=== PATIENT | female | born 1955 | race Caucasian/White ===

== ENCOUNTER → 2017-12-09 | Outpatient (CLI) | payer OTHER ==
[~2017-12-09] MED LIST: ALPRAZOLAM 0.0.25 MG PO; AMBIEN 5 MG TABL5 MG PO; AMLODIPINE-OLM1 EACH PO; ASPIR 8181 MG PO; AUGMENTIN 875875 MG PO; CALCIUM 500 +1 EAC5 PO; CENTRUM SILVER1 EAC4 PO; COLACE100 MG PO; EFFEXOR75 MG PO; ESTRACE2 MG PO; ESTRADIOL 1 MG T1 M1 PO; HYDROCODONE-AP1 EAC6 PO; IRBESARTAN75 MG PO; LATISSE5 ML TP; NORVASC2.5 MG PO; PRENATAL PO; SENOKOT-S1 TA1 PO; SUPER B COMPLEX PO; SYNTHROID25 MC1 PO; VENLAFAXIN75 MG/1 T2 PO; VENLAFAXINE HC150 M1 PO
== END ==
LOC: NUC 12:59
DX: N91.2 Amenorrhea, unspecified (principal); Z78.0 Asymptomatic menopausal state; Z29.9 Encounter for prophylactic measures, unspecified

== ENCOUNTER → 2017-12-15 | Outpatient (CLI) | payer OTHER | LOC: RAD 10:05 | DX: Z12.31 Encounter for screening mammogram for malignant neoplasm of breast (principal) ==

== ENCOUNTER → 2017-12-19 | Outpatient (CLI) | payer OTHER ==
[~2017-12-19] VITALS: Ht 162.6 cm; Wt 68.0 kg
--- NOTE | ~2017-12-19 | P ---
[facility] [place] [address] PROCEDURE REPORT Name: CHARLIE SAUNDERS Room #: REG [facility]#: [id number] Admission: 12/19/17 Attend Phys: Oh Hdez MD Discharge: Date of : 57 Report #: [id number] THIS REPORT FOR: //name// CC: Oh Berman DATE OF SERVICE: 12/19/2017 BRIEF HISTORY: The patient is a 62-year-old woman for average risk screening colonoscopy. PREOPERATIVE DIAGNOSIS: Average risk screening colonoscopy. POSTOPERATIVE DIAGNOSES: 1. Diminutive polyp. 2. Moderate sigmoid diverticulosis coli. MEDICATIONS: Deep sedation with propofol per anesthesia. SPECIMEN: Polyp at 60 cm. ESTIMATED BLOOD LOSS: 3 mL PROCEDURE: Colonoscopy to cecum and terminal ileum with biopsy. FINDINGS: Prior to propofol sedation, procedure of colonoscopy was discussed with the patient as well as potential risks and its complications. She indicates she understands and desires to proceed. The patient was placed in a left lateral decubitus position, digital examination was completed, which revealed no abnormalities. Subsequently, the Olympus video colonoscope was introduced into the rectum and advanced under direct vision to the cecum. Done with minimal difficulty. The cecum was identified by the ileocecal valve and the appendiceal orifice. I was able to visualize the distal segment of terminal ileum, which was unremarkable. At that point, scope was slowly withdrawn and careful circumferential views obtained including retroflexing the scope in the ascending colon. Upon slow withdrawal of the scope, the prep was noted to be excellent. The mucosa was within normal limits, normal vascular pattern and normal light reflex. No mucosal abnormalities were identified until the scope was withdrawn to about 60 cm at which point a diminutive polyp was seen and removed by biopsy. The scope was further withdrawn, and no additional neoplastic lesions were seen; however, in the sigmoid colon, there was moderately severe diverticular disease without endoscopic evidence of diverticulitis. Upon retroflexion, the scope was withdrawn in the rectum. No abnormalities were seen. Upon retroflexion in the rectum, no abnormalities were seen. Scope was withdrawn. The patient tolerated the procedure well. [facility] [address] [place] [address] PROCEDURE REPORT Name: CHARLIE SAUNDERS Guillermo [id number] Admission: 12/19/17 Attend Phys: Oh Hdez MD Discharge: Date of : 57 Report #: [id number] CONDITION OF THE PATIENT UPON DISCHARGE: Following the procedure, the patient was drowsy, arousable, conversant and will be discharged home when fully ambulatory. INSTRUCTIONS TO THE PATIENT AND FAMILY AT THE TIME OF DISCHARGE: We will follow up on the path of the polyp. If this is adenomatous, return in 5 years. If it is not adenomatous, then 10 years would be indicated. Last colonoscopy was 11 years ago. Withdrawal time from the cecum was 11 minutes 48 seconds. <ELECTRONICALLY SIGNED> By: Oh Hdez MD 12/20/17 1158 [id number] Oh Hdez MD /nt
--- NOTE | ~2017-12-19 | PATH ---
[facility] [address] [place] [address] PATHOLOGY RPT PROCEDURE Name: CHARLIE SAUNDERS Room #: REG ROBY Regina.#: [id number] Admission: 12/19/17 Date of : 57 Discharge: Report #: [id number] Path Case #: [id number] [facility] Accession Number: [id number] . 01 Material submitted: . PART A: BX OF SMALL BOWEL R/O CELIAC DX PART B: BX OF GASTRITIS PART C: BX OF POLYP AT 60CM . 01 Clinical history: . Preop diagnosis: Reflux, dysphagia, screening Postop diagnosis: Diverticulosis, colon polyp, esophagitis, gastritis, dysphagia, hiatus hernia A. R/O celiac . 02 Diagnosis: A. Small bowel mucosa, R/O celiac disease, endoscopic biopsy: - Fundic metaplasia with moderate active inflammation and mild villous blunting, compatible with active peptic duodenitis. - No increase in intraepithelial lymphocytes. . B. Gastric mucosa, gastritis, endoscopic biopsy: - Mild chronic active gastritis. - Negative for intestinal metaplasia or atrophy. - Negative for Helicobacter pylori (properly controlled immunohistochemical stain performed). . C. Polyp, at 60 cm, endoscopic biopsy: - Tubular adenoma. - Negative for high-grade dysplasia. ([facility]:[place]; 12/21/2017) QMS/12/21/2017 . 02 Electronically signed: . Bety Alvarado MD, Pathologist NPI- [id number] . 01 Gross description: . A. Received in formalin labeled "Charlie Saunders BX small bowel R/O celiac," are six segments of medrano soft tissue measuring 0.8 x 0.5 x 0.3 cm in aggregate dimensions and ranging from 0.2 to 0.5 cm in maximum dimension. The specimen is submitted entirely in cassette A1. . B. Received in formalin labeled "Charlie Saunders BX of gastritis," are six segments of medrano soft tissue measuring 0.8 x 0.5 x 0.2 cm in aggregate dimensions and ranging from 0.2 to 0.5 cm in maximum dimension. The specimen is submitted entirely in cassette B1. [address] [address] PATHOLOGY RPT PROCEDURE Name: CHARLIE SAUNDERS Room #: REG CLI Divya#: [id number] Admission: 12/19/17 Date of : 57 Discharge: Report #: [id number] Path Case #: [id number] . C. Received in formalin labeled "Charlie Saunders, BX of polyp at 60," and additionally labeled on the requisition as, "BX of polyp at 60 cm," are three segments of medrano soft tissue measuring 0.6 x 0.4 x 0.2 cm in aggregate dimensions and ranging from 0.3 to 0.4 cm in maximum dimension. The specimen is submitted entirely in cassette C1. ([facility]; 12/20/2017) XDC/XDC . 02 Pathologist provided ICD-10: K29.80, K29.50, D12.6 . 02 CPT . 152071, 817411, 109719, E91945 Specimen Comment: A courtesy copy of this report has been sent to Specimen Comment: [phone], . Specimen Comment: Report sent to / DR SHETH Performed at: [address], [place] [id number] MD Chevy Alaniz MD Phone: [phone] Performed at: [address] [id number] MD Bety Alvarado MD Phone: [phone]
--- NOTE | ~2017-12-19 | P ---
[facility] [place] [address] PROCEDURE REPORT Name: CHARLIE SAUNDERS Room #: REG [facility]#: [id number] Admission: 12/19/17 Attend Phys: Oh Hdez MD Discharge: Date of : 57 Report #: [id number] THIS REPORT FOR: //name// CC: Oh Berman DATE OF SERVICE: 12/19/2017 BRIEF HISTORY: The patient is a 62-year-old woman with worsening reflux symptoms including nocturnal regurgitation. She also has intermittent solid food dysphagia. In addition, she has abdominal bloating and gas symptoms and has 3-4 soft stools daily. PREOPERATIVE DIAGNOSIS: Poorly controlled reflux and solid food dysphagia and gas with loose stools. POSTOPERATIVE DIAGNOSES: 1. Mild erythematous antral gastritis. 2. Small intermittently seen sliding hiatus hernia, 1-2 cm. 3. Mild, grade A esophagitis with few erosions. MEDICATIONS: Deep sedation with propofol per anesthesia. SPECIMEN: Small bowel biopsies to rule out celiac disease. ESTIMATED BLOOD LOSS: 3 mL PROCEDURE: Esophagogastroduodenoscopy and Velasco dilation. FINDINGS: Prior to propofol sedation, procedure of upper endoscopy was discussed with the patient as well as potential risks and its complications. She indicates she understands and desires to proceed. The patient was placed in left lateral decubitus position, the Olympus video endoscope was inserted in the cervical esophagus under direct vision without difficulty. Examination of this organ through its entirety revealed normal esophageal mucosa down the squamocolumnar junction. At the squamocolumnar junction, she was noted to have 2 small erosions. There is no evidence of Moore mucosa, strictures or masses. Intermittently, a 1-2 cm sliding hiatus hernia was seen. Scope was advanced into the stomach, was examined on end view as well as retroflexed views. Upon retroflexion, a small 1-2 cm sliding type hiatus hernia was seen intermittently. No mass lesions were seen. Mucosa was normal. Examination of distal stomach revealed mild erythematous gastritis. No ulcers or erosions were seen. It was noted she does have remote history of ulcer disease, and multiple biopsies were obtained. The pylorus, duodenal bulb and postbulbar duodenal sweep was inspected and noted to be unremarkable. In view of her bloating and gas [address] [address] PROCEDURE REPORT Name: CHARLIE SAUNDERS Room #: REG CL Regina.#: [id number] Admission: 12/19/17 Attend Phys: Oh Hdez MD Discharge: Date of : 57 Report #: [id number] symptoms as well as increased stool frequency, multiple biopsies were obtained to evaluate for celiac disease. At that point, scope was slowly withdrawn and careful circumferential views confirmed the above findings. The patient tolerated the procedure well. Subsequently, she was dilated with passage of 50-Liber[place] Velasco dilator. There was no resistance. CONDITION OF THE PATIENT UPON DISCHARGE: Following procedure, the patient was drowsy and arousable. She was prepped for colonoscopy. INSTRUCTIONS TO THE PATIENT AND FAMILY AT THE TIME OF DISCHARGE: She does have evidence of esophagitis and clearly has reflux symptoms based on history with nighttime regurgitation. We will have her use pantoprazole 40 mg daily and antireflux measures as well. She will return for followup in the office in 2-3 months. She may require a higher dose. If symptoms persist, surgery may be an option. <ELECTRONICALLY SIGNED> By: Oh Hdez MD 12/20/17 1158 [id number] Oh Hdez MD /nt
== END | disposition home or self-care (01) ==
LOC: GI 07:17
DX: Z12.11 Encounter for screening for malignant neoplasm of colon (principal); D12.4 Benign neoplasm of descending colon; K57.30 Diverticulosis of large intestine without perforation or abscess without bleeding; K29.80 Duodenitis without bleeding; K29.50 Unspecified chronic gastritis without bleeding; K21.9 Gastro-esophageal reflux disease without esophagitis; K44.9 Diaphragmatic hernia without obstruction or gangrene; K22.10 Ulcer of esophagus without bleeding; K35.80 Unspecified acute appendicitis; F41.9 Anxiety disorder, unspecified; F32.9 Major depressive disorder, single episode, unspecified; I10 Essential (primary) hypertension; E03.9 Hypothyroidism, unspecified; Z79.899 Other long term (current) drug therapy; Z79.82 Long term (current) use of aspirin; Z87.442 Personal history of urinary calculi; Z98.890 Other specified postprocedural states; Z98.818 Other dental procedure status; Z90.710 Acquired absence of both cervix and uterus; Z90.89 Acquired absence of other organs
CPT/HCPCS: 62110; 62900

== ENCOUNTER → 2018-05-26 | Outpatient (CLI) | payer OTHER | LOC: CAT 15:07 | DX: Z13.6 Encounter for screening for cardiovascular disorders (principal); E78.00 Pure hypercholesterolemia, unspecified; I25.10 Atherosclerotic heart disease of native coronary artery without angina pectoris ==

== ENCOUNTER → 2019-03-30 | Outpatient (CLI) | payer OTHER | LOC: CAT 15:34 | DX: N13.2 Hydronephrosis with renal and ureteral calculous obstruction (principal) ==

== ENCOUNTER → 2019-04-02 | Outpatient (CLI) | payer OTHER | LOC: RAD 15:10 | DX: N20.1 Calculus of ureter (principal) ==

== ENCOUNTER → 2019-11-12 | Outpatient (CLI) | payer OTHER ==
[2019-11-12 11:57] LABS: URINE BILIRUBIN NEGATIVE (Negative); URINE BLOOD NEGATIVE (Negative); URINE CLARITY CLEAR; URINE COLOR YELLOW; URINE GLUCOSE-RANDOM* NEGATIVE (Negative); URINE KETONES NEGATIVE (Negative); URINE LEUKOCYTES-REFLEX NEGATIVE (Negative); URINE NITRITE-REFLEX NEGATIVE (Negative); URINE PROTEIN (DIPSTICK) NEGATIVE (Negative); URINE SPECIFIC GRAVITY 1.025 (1.005-1.035); URINE UROBILINOGEN 0.2 E.U./dl (0.2-1.0)
[2019-11-12 12:02] LABS: ABSOLUTE NEUTROPHILS 4.8 thou/uL (1.4-8.2); EOSINOPHILS 1.6 % (0.0-3.0); HEMATOCRIT 36.9 % (37.0-47.0); HEMOGLOBIN 12.3 gm/dL (12.0-15.0); LYMPHOCYTES 27.5 % (24.0-44.0); MCH 31.7 pg (26.0-34.0); MCHC 33.2 g/dL (28.0-37.0); MCV 95.4 fL (80.0-100.0); MONOCYTES 7.2 % (1.0-8.0); PLATELET COUNT 277 thou/uL (150-400); POLYS 62.7 % (36.0-66.0); RBC 3.87 mil/uL (4.20-5.00); RDW 12.7 % (10.5-14.5); WBC 7.6 thou/uL (4.0-11.0)
[2019-11-12 12:20] LABS: ALBUMIN 3.8 g/dL (3.4-5.0); ANION GAP 10 mmol/L (7-16); BUN 13 mg/dL (7-18); CALCIUM 9.2 mg/dL (8.5-10.1); CHLORIDE 100 mmol/L (98-107); CHOLESTEROL 216 mg/dL (<200); CO2 27 mmol/L (21-32); CREATININE 0.7 mg/dL (0.6-1.0); GLUCOSE 93 mg/dL (74-106); HDL CHOLESTEROL 135 mg/dL (>40); LDL CHOLESTEROL 63 mg/dL (<100); POTASSIUM 4.7 mmol/L (3.5-5.1); SGOT 28 U/L (15-37); SGPT 29 U/L (30-65); SODIUM 137 mmol/L (136-145); TC:HDL 1.6 Ratio (Not establshd); TOTAL BILIRUBIN 0.4 mg/dL (0.2-1.0); TOTAL PROTEIN 7.5 g/dL (6.4-8.2); TRIGLYCERIDE 90 mg/dL (<150); VLDL 18 mg/dL (<40)
[2019-11-13 01:08] LABS: GLYCOHEMOGLOBIN (HGB A1C) 5.3 % (4.8-5.6)
== END ==
LOC: LABMALL 11:06
PROVIDERS: ATTEND Internal Medicine
DX: Z00.00 Encounter for general adult medical examination without abnormal findings (principal)

== ENCOUNTER → 2019-12-17 | Outpatient (CLI) | payer OTHER | LOC: RAD 14:45 | PROVIDERS: ATTEND Internal Medicine | DX: Z12.31 Encounter for screening mammogram for malignant neoplasm of breast (principal) ==

== ENCOUNTER → 2020-11-28 | Outpatient (CLI) | payer OTHER ==
[2020-11-28 12:40] LABS: URINE BILIRUBIN NEGATIVE (Negative); URINE BLOOD NEGATIVE (Negative); URINE CLARITY CLEAR; URINE COLOR YELLOW; URINE GLUCOSE-RANDOM* NEGATIVE (Negative); URINE KETONES NEGATIVE (Negative); URINE LEUKOCYTES-REFLEX NEGATIVE (Negative); URINE NITRITE-REFLEX NEGATIVE (Negative); URINE PROTEIN (DIPSTICK) NEGATIVE (Negative); URINE SPECIFIC GRAVITY 1.025 (1.005-1.035); URINE UROBILINOGEN 0.2 E.U./dl (0.2-1.0)
[2020-11-28 12:46] LABS: ABSOLUTE NEUTROPHILS 4.3 thou/uL (1.4-8.2); BASOPHILS 0.6 % (0.0-2.0); EOSINOPHILS 1.4 % (0.0-3.0); HEMATOCRIT 37.8 % (37.0-47.0); HEMOGLOBIN 12.6 gm/dL (12.0-15.0); LYMPHOCYTES 28.7 % (24.0-44.0); MCH 31.9 pg (26.0-34.0); MCHC 33.3 g/dL (28.0-37.0); MCV 95.8 fL (80.0-100.0); MONOCYTES 7.7 % (1.0-8.0); PLATELET COUNT 294 thou/uL (150-400); POLYS 61.6 % (36.0-66.0); RBC 3.94 mil/uL (4.20-5.00)
[2020-11-28 13:09] LABS: ALBUMIN 3.9 g/dL (3.4-5.0); ANION GAP 12 mmol/L (7-16); BUN 15 mg/dL (7-18); CALCIUM 9.2 mg/dL (8.5-10.1); CHLORIDE 102 mmol/L (98-107); CHOLESTEROL 215 mg/dL (<200); CO2 24 mmol/L (21-32); CREATININE 0.8 mg/dL (0.6-1.0); GLUCOSE 98 mg/dL (74-106); HDL CHOLESTEROL 127 mg/dL (>40); LDL CHOLESTEROL 58 mg/dL (<100); POTASSIUM 3.9 mmol/L (3.5-5.1); SGOT 30 U/L (15-37); SGPT 27 U/L (30-65); SODIUM 138 mmol/L (136-145); TC:HDL 1.7 Ratio (Not establshd); TOTAL BILIRUBIN 0.4 mg/dL (0.2-1.0); TOTAL PROTEIN 7.8 g/dL (6.4-8.2); TRIGLYCERIDE 153 mg/dL (<150); VLDL 31 mg/dL (<40)
[2020-11-29 02:06] LABS: GLYCOHEMOGLOBIN (HGB A1C) 5.4 % (4.8-5.6)
== END ==
LOC: LAB 11:25
PROVIDERS: ATTEND Internal Medicine
DX: Z00.00 Encounter for general adult medical examination without abnormal findings (principal); E03.9 Hypothyroidism, unspecified

== ENCOUNTER → 2021-01-14 | Outpatient (CLI) | payer OTHER | LOC: BC 09:06 | PROVIDERS: ATTEND Family Medicine | DX: Z12.31 Encounter for screening mammogram for malignant neoplasm of breast (principal) ==